=== PATIENT | male | born 2000 | race Caucasian/White ===

== ENCOUNTER 2022-11-02 22:55 | Emergency (ER) | payer OTHER ==
[~2022-11-02] VITALS: Ht 177.8 cm; Wt 113.4 kg
--- NOTE | 2022-11-02 22:55 | NUR ---
PT LILIANA HERNANDEZ, TAKEN TO CHAIR
[2022-11-02 23:26] VITALS: BP 139/88
--- NOTE | 2022-11-02 23:56 | NUR ---
Patient being evaluated by physician
--- NOTE | 2022-11-03 00:06 | NUR ---
PATIENT BIB [employer] [employer]. PATIENT EXAMINED BY DR. BRAXTON. PATIENT MEDICALLY CLEARED AND RELEASED IN CUSTODY IN STABLE CONDITION. ORIGINAL PRE-BOOK FORM GIVEN TO OFFICER HERNANDEZ, #[id number].
== END 2022-11-03 00:06 ==
LOC: MED 22:55
DX: J45.909 Unspecified asthma, uncomplicated (principal); Z02.89 Encounter for other administrative examinations; V89.2XXA Person injured in unspecified motor-vehicle accident, traffic, initial encounter; Y93.89 Activity, other specified; Y92.89 Other specified places as the place of occurrence of the external cause; Y99.8 Other external cause status
CPT/HCPCS: 99283